=== PATIENT | male | born 1970 | race Two or more races ===

== ENCOUNTER 2024-02-28 21:51 | Emergency (ER) | payer MEDICARE, MEDICAID | END 2024-02-28 22:40 | disposition left against medical advice (07) | LOC: ER 21:51 | DX: Z48.02 Encounter for removal of sutures (principal); Z53.21 Procedure and treatment not carried out due to patient leaving prior to being seen by health care provider ==

== ENCOUNTER → 2024-04-19 | Emergency (ER) | payer MEDICARE, MEDICAID ==
[~2024-04-19] VITALS: Ht 162.6 cm; Wt 84.0 kg
[2024-04-19 01:10] VITALS: BP 156/71; PULSE 77; RESP 12; TEMP 98.6; O2SAT 96
== END | disposition left against medical advice (07) ==
LOC: ER 01:10
DX: R51.9 Headache, unspecified (principal); Z53.21 Procedure and treatment not carried out due to patient leaving prior to being seen by health care provider